=== PATIENT | male | born 1945 | race Caucasian/White ===

== ENCOUNTER 2017-04-25 15:59 | Inpatient (IN) | payer BC ==
[~2017-04-25] VITALS: Ht 190.5 cm; Wt 108.8 kg
[2017-04-25] MEDS ORDERED: ASPIRIN 81M81 MG/TA2 PO (16:06)
[2017-04-25 17:01] LABS: PH 6 (5-8); SQUAMOUS EPITHELIAL 0-2 /hpf; URINE APPEARANCE Hazy; URINE BACTERIA Rare /hpf; URINE BILIRUBIN Negative (NEGATIVE); URINE BLOOD 3+ (NEGATIVE); URINE COLOR Yellow; URINE GLUCOSE Negative (NEGATIVE); URINE KETONE Negative (NEGATIVE); URINE RBC >50 /hpf
[2017-04-25 17:20] LABS: BASO # 0.1 (0.0-0.2); BASO % 0.4 % (0.0-2.0); EOS # 0.1 (0.0-0.7); EOS % 0.5 % (0-4.0); GRAN # 15.2 (1.4-6.5); GRAN % 85.9 % (42.2-75.2); HEMOGLOBIN 13.7 g/dl (13.5-18.0); LYMPH # 1.2 (1.2-3.4); LYMPH % 6.9 % (20.0-51.0); MEAN CELL VOLUME 92 fl (80.0-100.0); MEAN CORPUSCULAR HEMOGLOBIN 30 pg (27.0-31.0); MEAN CORPUSCULAR HGB CONC 33 g/dl (33.0-37.0); MEAN PLATELET VOLUME 9.1 fl (7.4-10.4); MONO % 5.7 % (1.7-9.3); PLATELET COUNT 168 K/mm3 (130-400); RED BLOOD COUNT 4.57 M/mm3 (4.20-5.60); REDCELL DISTRIBUTION WIDTH-CV 12.7 % (11.5-14.5); WHITE BLOOD COUNT 17.8 K/mm3 (4.8-10.8)
[2017-04-25 17:26] LABS: URINE WBC >50 /hpf
[2017-04-25 17:31] LABS: BILIRUBIN,TOTAL 1.6 mg/dL (0.0-1.0); CREATININE, serum 0.99 mg/dL (0.66-1.25); POTASSIUM 3.7 mmol/L (3.4-5.0); TOTAL PROTEIN 7.1 gm/dL (6.4-8.2)
[2017-04-25 20:44] VITALS: BP 121/66; BP 146/63; PULSE 100; PULSE 72; TEMP 101.3
[2017-04-25 22:02] LABS: INR 1.2 (0.8-3.0); PROTHROMBIN TIME 12.8 SECONDS (9.7-12.8)
[2017-04-25 22:04] LABS: SALICYLATE < 1.0 mg/dL
[2017-04-25 22:29] LABS: TROPONIN-I < 0.012 ng/mL (0.000-0.034)
[2017-04-25 23:55] VITALS: BP 100/50; PULSE 77; TEMP 98
[2017-04-26] VITALS (7 sets, daily range): BP systolic 96–143; BP diastolic 35–61; PULSE 52–87; TEMP 97.7–98.7
[2017-04-26 07:29] LABS: BASO # 0.1 (0.0-0.2); BASO % 0.3 % (0.0-2.0); EOS # 0.1 (0.0-0.7); EOS % 0.3 % (0-4.0); GRAN # 14.1 (1.4-6.5); GRAN % 78.7 % (42.2-75.2); HEMATOCRIT 38.1 % (42.0-52.0); HEMOGLOBIN 12.5 g/dl (13.5-18.0); LYMPH # 2.5 (1.2-3.4); LYMPH % 13.7 % (20.0-51.0); MEAN CELL VOLUME 93 fl (80.0-100.0); MEAN CORPUSCULAR HEMOGLOBIN 30 pg (27.0-31.0); MEAN CORPUSCULAR HGB CONC 33 g/dl (33.0-37.0); MEAN PLATELET VOLUME 9.1 fl (7.4-10.4); MONO # 1.1 (0.1-0.6); MONO % 6.4 % (1.7-9.3); PLATELET COUNT 149 K/mm3 (130-400); RED BLOOD COUNT 4.11 M/mm3 (4.20-5.60); REDCELL DISTRIBUTION WIDTH-CV 12.8 % (11.5-14.5); WHITE BLOOD COUNT 17.9 K/mm3 (4.8-10.8)
[2017-04-26 07:46] LABS: ADJUSTED CALCIUM 8.7 mg/dL (8.4-10.2); ALBUMIN 2.7 gm/dL (3.5-5.0); BILIRUBIN,TOTAL 2.3 mg/dL (0.0-1.0); CALCIUM 7.7 mg/dL (8.4-10.2); CREATININE, serum 0.87 mg/dL (0.66-1.25); POTASSIUM 3.9 mmol/L (3.4-5.0); TOTAL PROTEIN 5.3 gm/dL (6.4-8.2)
[2017-04-27 03:35] VITALS: BP 132/40; PULSE 78; TEMP 98.6
[2017-04-27 07:25] LABS: BASO % 0.4 % (0.0-2.0); EOS # 0.2 (0.0-0.7); EOS % 1.8 % (0-4.0); GRAN # 7.6 (1.4-6.5); GRAN % 73.6 % (42.2-75.2); HEMATOCRIT 37.1 % (42.0-52.0); HEMOGLOBIN 12.4 g/dl (13.5-18.0); LYMPH # 1.7 (1.2-3.4); LYMPH % 16.3 % (20.0-51.0); MEAN CELL VOLUME 91 fl (80.0-100.0); MEAN CORPUSCULAR HEMOGLOBIN 31 pg (27.0-31.0); MEAN CORPUSCULAR HGB CONC 33 g/dl (33.0-37.0); MEAN PLATELET VOLUME 9.5 fl (7.4-10.4); MONO # 0.7 (0.1-0.6); MONO % 6.7 % (1.7-9.3); PLATELET COUNT 134 K/mm3 (130-400); RED BLOOD COUNT 4.06 M/mm3 (4.20-5.60); REDCELL DISTRIBUTION WIDTH-CV 12.9 % (11.5-14.5); WHITE BLOOD COUNT 10.3 K/mm3 (4.8-10.8)
[2017-04-27 07:52] VITALS: BP 147/58; PULSE 70; TEMP 97.9
[2017-04-27 07:55] LABS: ALBUMIN 2.6 gm/dL (3.5-5.0); BILIRUBIN,TOTAL 1.1 mg/dL (0.0-1.0); CALCIUM 7.9 mg/dL (8.4-10.2); CREATININE, serum 0.8 mg/dL (0.66-1.25); POTASSIUM 3.5 mmol/L (3.4-5.0); TOTAL PROTEIN 5.3 gm/dL (6.4-8.2)
[2017-04-27 11:10] VITALS: BP 141/67; PULSE 75; TEMP 97.6
[2017-04-27 15:56] VITALS: BP 159/89; PULSE 74; TEMP 98.3
[2017-04-27 19:46] VITALS: BP 155/76; PULSE 81; TEMP 98.5
[2017-04-27 23:32] VITALS: BP 139/52; PULSE 71; TEMP 98.4
[2017-04-28 03:57] VITALS: BP 151/70; PULSE 67; TEMP 97.6
[2017-04-28 08:29] VITALS: BP 133/50; PULSE 65; TEMP 98
[2017-04-28 09:05] LABS: HEMATOCRIT 39.3 % (42.0-52.0); MEAN CELL VOLUME 91 fl (80.0-100.0); MEAN CORPUSCULAR HEMOGLOBIN 30 pg (27.0-31.0); MEAN CORPUSCULAR HGB CONC 33 g/dl (33.0-37.0); MEAN PLATELET VOLUME 9.1 fl (7.4-10.4); PLATELET COUNT 145 K/mm3 (130-400); RED BLOOD COUNT 4.33 M/mm3 (4.20-5.60); REDCELL DISTRIBUTION WIDTH-CV 12.7 % (11.5-14.5); WHITE BLOOD COUNT 6.2 K/mm3 (4.8-10.8)
[2017-04-28 09:09] LABS: ADD PATHOLOGY DIFF REVIEW NO; ADJUSTED CALCIUM 9.3 mg/dL (8.4-10.2); ALBUMIN 2.9 gm/dL (3.5-5.0); BILIRUBIN,TOTAL 0.8 mg/dL (0.0-1.0); CALCIUM 8.4 mg/dL (8.4-10.2); CREATININE, serum 0.81 mg/dL (0.66-1.25); POTASSIUM 3.5 mmol/L (3.4-5.0); TOTAL PROTEIN 5.7 gm/dL (6.4-8.2)
[2017-04-28 09:56] LABS: BAND 3 % (0-10); BASOPHIL 1 % (0-2); EOSINOPHIL 6 % (0-4); METAMYELOCYTE 1 % (0-0); NEUTROPHILS 66 % (42.0-75.2); TOTAL CELLS COUNTED 100
[2017-04-28 09:57] LABS: PLATELET ESTIMATE NORMAL (NORMAL)
[2017-04-28 11:32] VITALS: BP 145/66; PULSE 82; TEMP 97.7
[2017-04-28 16:32] VITALS: BP 138/66; PULSE 83; TEMP 98.3
[2017-04-28 19:53] VITALS: BP 151/67; PULSE 80; TEMP 98.5
[2017-04-28 23:34] VITALS: BP 144/72; PULSE 70; TEMP 98.2
[2017-04-29 03:48] VITALS: BP 138/66; PULSE 61; TEMP 97.7
[2017-04-29 07:30] VITALS: BP 138/72; PULSE 86; TEMP 97.8
[2017-04-29] MEDS ORDERED: MONUROL 3 GM3 G/PKT PO (16:00)
[2017-04-29] MEDS ORDERED: INVANZ INJ1 G/VIAL IV (16:00)
[2017-04-29 16:02] VITALS: BP 131/99; PULSE 51; TEMP 98
[2017-04-29 16:05] VITALS: BP 138/70; PULSE 82; TEMP 98
== END 2017-04-29 18:05 | disposition home or self-care (01) | DRG 872 ==
LOC: COL.ER 15:59 → MEDICAL 17:47
PROVIDERS: Emergency Medicine; Nurse Practitioner Family
PROC: 02HV33Z Insertion of Infusion Device into Superior Vena Cava, Percutaneous Approach (ICD-10-PCS; principal; 2017-04-29)
DX: A41.51 Sepsis due to Escherichia coli [E. coli] (principal); N39.0 Urinary tract infection, site not specified; E87.6 Hypokalemia; M25.552 Pain in left hip; M25.551 Pain in right hip; Z87.891 Personal history of nicotine dependence; Z87.442 Personal history of urinary calculi
CPT/HCPCS: 99223-AI; 99232-AI; 99239; C1751; C1894; G0103; J1335; J1644; J1650; J2185; J2270; J2405; J7030

== ENCOUNTER 2017-05-02 16:01 | Outpatient (RCR) | payer MEDICARE, BC ==
[~2017-05-02 16:01] MED LIST: ASPIRIN 81M81 MG/TA2 PO; INVANZ INJ1 G/VIAL IV; MONUROL 3 GM3 G/PKT PO
[2017-05-02] MEDS ORDERED: FLOMAX 0.40.4 MG/CAP PO (16:12)
== END 2017-05-02 17:00 | disposition home or self-care (01) ==
LOC: EUO 16:01
DX: Z01.89 Encounter for other specified special examinations (principal)

== ENCOUNTER 2017-05-03 14:43 | Outpatient (RCR) | payer MEDICARE, BC ==
[2017-04-30 16:40] VITALS: BP 153/63; PULSE 79; TEMP 97.9
[2017-05-01 15:23] VITALS: BP 137/52; PULSE 80; TEMP 97.7
[2017-05-02 17:09] VITALS: BP 144/58; PULSE 79; TEMP 97.3
[~2017-05-03] VITALS: Ht 190.5 cm; Wt 108.0 kg
[~2017-05-03 14:43] MED LIST changes: +FLOMAX 0.40.4 MG/CAP PO
[2017-05-04 14:49] VITALS: BP 132/69; PULSE 80; TEMP 97.8
[2017-05-05 15:15] VITALS: BP 127/79; PULSE 81; TEMP 98.3
[2017-05-06 15:09] VITALS: BP 164/73; PULSE 72; TEMP 98
[2017-05-07 12:09] VITALS: BP 127/38; PULSE 87; TEMP 97.6
[2017-05-08 09:06] VITALS: BP 149/64; PULSE 78; TEMP 97.5
[2017-05-09 08:30] VITALS: BP 145/86; PULSE 78; TEMP 97.7
[2017-05-10 08:38] VITALS: BP 158/71; PULSE 74
[2017-05-11 08:36] VITALS: BP 151/65; PULSE 85; TEMP 97.3
[2017-05-14] MEDS ORDERED: AZO-CRANBERRY450 MG PO (15:33)
== END 2017-05-14 18:28 | disposition home or self-care (01) ==
LOC: EUO 15:00
DX: N30.00 Acute cystitis without hematuria (principal); Z79.899 Other long term (current) drug therapy
CPT/HCPCS: J1335; J1644; J7050